=== PATIENT | female | born 1940 | race Caucasian/White ===

== ENCOUNTER 2021-02-10 07:58 | Outpatient (CLI) | payer MEDICARE ==
[2021-02-10] MEDS ORDERED: Iopamidol 370 76% 100 ML VIAL ONE (15:08)
== END 2021-02-10 07:59 | disposition home or self-care (01) ==
LOC: BURCT 07:58
PROVIDERS: ATTEND Surgery
DX: Z01.818 Encounter for other preprocedural examination (principal); K43.2 Incisional hernia without obstruction or gangrene; K43.9 Ventral hernia without obstruction or gangrene
CPT/HCPCS: 74177; 82565; Q9967